=== PATIENT | male | born 1945 | race Caucasian/White ===

== ENCOUNTER → 2018-07-14 11:15 | Outpatient (CLI) | payer MEDICARE, OTHER, SELFPAY ==
[2018-07-14 12:08] LABS: Add Manual Diff / Slide Review NO; Basophils Absolute Auto 100 /uL (0-100); Basophils Percent Auto 1.1 % (0-2); Eosinophils Absolute Auto 700 /uL (0-450); Eosinophils Percent Auto 12.6 % (2-4); Hematocrit 42.9 % (41-53); Lymphocytes Absolute Auto 1600 /uL (1100-4500); Lymphocytes Percent Auto 29.7 % (25-40); Mean Corpuscular HGB Conc 32.6 % (30-36); Mean Corpuscular Hemoglobin 26.5 PG (26-34); Mean Corpuscular Volume 81.2 fL (80-100); Monocytes Absolute Auto 400 /uL (0-900); Monocytes Percent Auto 8.4 % (3-14); Neutrophils Absolute Auto 2600 /uL (1500-7000); Neutrophils Percent Auto 48.2 % (50-75); Platelet Count 265 X10^3/uL (150-400); Red Blood Cell Count 5.28 X10^6/uL (4.5-5.9); Red Cell Distribution Width 14.3 % (11.6-14.8); White Blood Cell Count 5.3 X10^3/uL (4.5-11.0)
[2018-07-14 12:28] LABS: Hemoglobin A1C% w Est Avg Glu 6.1 % (4.0-6.0)
[2018-07-14 12:33] LABS: BUN Creatinine Ratio 19.1 (6-22); Blood Urea Nitrogen 21 mg/dL (9-20); Calcium 9.7 mg/dL (8.4-10.2); Carbon Dioxide 28 mmol/L (22-32); Chloride 101 mmol/L (98-107); Estimated Glomerular Filt Rate > 60.0 mL/min (>60); Glucose 110 mg/dL (80-110); HEMOLYSIS < 15 (0-50); Potassium 4.4 mmol/L (3.4-5.1); Sodium 138 mmol/L (137-145)
[2018-07-14 12:49] LABS: Free T4, Direct Thyroxine 1.15 ng/dL (0.78-2.19)
[2018-07-14 12:50] LABS: Prolactin 7.7 ng/mL (3.7-17.9)
[2018-07-14 13:04] LABS: Prostate Specific Antigen Scrn 4.37 ng/mL (0.1-4.0)
== END ==
PROVIDERS: PCP Internal Medicine; Visit Provider Internal Medicine
DX: E29.1 Testicular hypofunction (principal); R73.09 Other abnormal glucose; Z51.81 Encounter for therapeutic drug level monitoring; Z12.5 Encounter for screening for malignant neoplasm of prostate
CPT/HCPCS: 36415; 80048; 83036; 84146; 84403; 84439; 85025; G0103

== ENCOUNTER → 2018-08-18 15:49 | Outpatient (CLI) | payer MEDICARE, OTHER, SELFPAY ==
[2018-08-18 16:49] LABS: Add Manual Diff / Slide Review NO; Basophils Absolute Auto 100 /uL (0-100); Eosinophils Absolute Auto 700 /uL (0-450); Eosinophils Percent Auto 11.2 % (2-4); Hematocrit 39.5 % (41-53); Hemoglobin 13.1 g/dL (13.5-17.5); Lymphocytes Absolute Auto 1400 /uL (1100-4500); Lymphocytes Percent Auto 20.8 % (25-40); Mean Corpuscular HGB Conc 33.1 % (30-36); Mean Corpuscular Hemoglobin 26.9 PG (26-34); Mean Corpuscular Volume 81.2 fL (80-100); Monocytes Absolute Auto 400 /uL (0-900); Monocytes Percent Auto 5.8 % (3-14); Neutrophils Absolute Auto 4100 /uL (1500-7000); Neutrophils Percent Auto 61.2 % (50-75); Platelet Count 239 X10^3/uL (150-400); Red Blood Cell Count 4.87 X10^6/uL (4.5-5.9); Red Cell Distribution Width 14.9 % (11.6-14.8); White Blood Cell Count 6.7 X10^3/uL (4.5-11.0)
[2018-08-18 17:40] LABS: HEMOLYSIS < 15 (0-50); Iron 37 ug/dL (49-181)
[2018-08-18 17:53] LABS: Percent Iron Saturation 10 % (20-50); Total Iron Binding Capacity 383 ug/dL (261-462); Transferrin 306 mg/dL (206-381)
[2018-08-18 18:12] LABS: Prostate Specific Antigen Scrn 3.25 ng/mL (0.1-4.0)
[2018-08-18 18:16] LABS: Ferritin 7.5 ng/mL (17.9-464)
== END ==
PROVIDERS: PCP Internal Medicine; Visit Provider Internal Medicine
DX: D72.1 Eosinophilia (principal); E29.1 Testicular hypofunction; Z12.5 Encounter for screening for malignant neoplasm of prostate; R97.20 Elevated prostate specific antigen [PSA]
CPT/HCPCS: 36415; 82728; 83540; 83550; 85025; G0103

== ENCOUNTER 2019-03-10 10:20 | Day surgery (SDC) | payer MEDICARE, OTHER, SELFPAY ==
[2019-03-10] MEDS: PROPARACAINE 0.5% OPHTH SOL 2 DROPS EYE-OP (11:26)
[2019-03-10 11:27] VITALS: BP 137/72; PULSE 65; RESP 16; TEMP 36; O2SAT 100; BMI 27.8
[2019-03-10] MEDS: CATARACT EYE COMPOUND (10 DROPS/SYRINGE) 3 DROPS EYE-OP (11:37)
[2019-03-10 11:45] VITALS: BP 137/72; PULSE 65; RESP 16; TEMP 36; O2SAT 100; BMI 27.8
--- NOTE | 2019-03-10 12:25 | PM.PREOP ---
Pre-operative Note Interval Note History & Physical reviewed/Exam performed by Physician: No Changes to H&P: No
--- NOTE | 2019-03-10 12:25 | PM.OP.1 ---
Operative Date/Time/Diagnoses Pre-op diagnosis: Nuclear Cataract Left eye Post-op diagnosis: same Procedure & Clinicians Surgeon: Yayo Hamm Anesthesia Type: MAC +/- and Sedation Operative Notes Procedure in detail: Patient brought to the operating suite. Tetracaine drops placed in the left eye. Patient was prepped and draped in sterile manner. Wire lid speculum was placed in the eye. Betadine drops were placed on the eye. This was irrigated. Lidocaine jelly was placed on the eye. A paracentesis port was created with a side-port blade. 0.1 mL 1% preservative free lidocaine was injected into the anterior chamber. The anterior chamber was deepened with viscoelastic. 2.6 mm keratome was used to create a temporal clear corneal incision. Cystotome and Utrata forceps were used to create continuous tear capsulorrhexis. Balanced salt solution was used to hydro dissect the nucleus. The phacoemulsification handpiece was inserted and the nucleus was removed using the stop and chop technique. The irrigation aspiration handpiece was inserted and the remaining cortex was removed. Anterior chamber was deepened with viscoelastic. An Reddy ZCB00 intraocular lens with a power of 17.0 was injected into the capsular bag. Irrigation aspiration handpiece was inserted and the remaining viscoelastic was removed. Incision was hydrated with balanced salt solution and found to be leak free with pressure with Weck-Keyla sponges. 0.1 mL Vigamox injected anterior chamber. 0.3 mL Kenalog 10 mg was injected subconjunctivally. Lid speculum was removed. The patient left the operating room in excellent condition. Complications: none Post-operative Condition: stable Disposition: same day surgery
[2019-03-10] MEDS: MOXIFLOXACIN INJ 5 MG/ML VIAL EYE-OP (12:45)
[2019-03-10] MEDS: PHENYLEPHRINE/LIDOCAINE VIAL (OR) 0.2 ML EYE-OP (12:45)
[2019-03-10] MEDS: TRIAMCINOLONE 50 MG/5 ML VIAL INJ (12:45)
[2019-03-10] MEDS: TETRACAINE 0.5% OPHTH DROPS 4 ML 2 DROPS EYE-OP (12:46)
[2019-03-10] MEDS: CHONDROIDTIN/SOD HYALURONATE 1.05 ML SYRINGE INTRAOCULA (12:46)
[2019-03-10] MEDS: LIDOCAINE JELLY 2% 5 ML 1 APPLIC TOP (12:46)
[2019-03-10] MEDS: BALANCED SALT IRRIG SOLN NO.2 500 ML, EPINEPHrine 1 MG IRR (12:46)
[2019-03-10 13:04] VITALS: BP 121/75; PULSE 69; RESP 17; TEMP 36.5; O2SAT 96
== END 2019-03-10 13:25 | disposition home or self-care (01) ==
PROVIDERS: PCP Internal Medicine; Visit Provider Ophthalmology
PROC: (CPT 66984; principal; 2019-03-10 12:45)
DX: H25.12 Age-related nuclear cataract, left eye (principal); I10 Essential (primary) hypertension
CPT/HCPCS: 66984; J0171; J2250; J3010; J3301

== ENCOUNTER 2019-03-24 11:04 | Day surgery (SDC) | payer MEDICARE, OTHER, SELFPAY ==
[2019-03-24] MEDS: PROPARACAINE 0.5% OPHTH SOL 2 DROPS EYE-OP (11:26)
[2019-03-24] MEDS: CATARACT EYE COMPOUND (10 DROPS/SYRINGE) 3 DROPS EYE-OP (11:32)
[2019-03-24 11:34] VITALS: BP 130/74; PULSE 68; RESP 15; TEMP 36.5; O2SAT 99; BMI 27.5
--- NOTE | 2019-03-24 11:44 | PM.PREOP ---
Pre-operative Note Interval Note History & Physical reviewed/Exam performed by Physician: No Changes to H&P: No
--- NOTE | 2019-03-24 11:44 | PM.OP.1 ---
Operative Date/Time/Diagnoses Pre-op diagnosis: Nuclear cataract right eye Procedure & Clinicians Procedure: Cataract Surgery Same procedure as scheduled: Yes Surgeon: Yayo Hamm Anesthesia Type: MAC +/- and Sedation Operative Notes Procedure in detail: Patient brought to the operating suite. Tetracaine drops placed in the right eye. Patient was prepped and draped in sterile manner. Wire lid speculum was placed in the eye. Betadine drops were placed on the eye. This was irrigated. Lidocaine jelly was placed on the eye. A paracentesis port was created with a side-port blade. 0.1 mL 1% preservative free lidocaine was injected into the anterior chamber. The anterior chamber was deepened with viscoelastic. 2.6 mm keratome was used to create a temporal clear corneal incision. Cystotome and Utrata forceps were used to create continuous tear capsulorrhexis. Balanced salt solution was used to hydro dissect the nucleus. The phacoemulsification handpiece was inserted and the nucleus was removed using the stop and chop technique. The irrigation aspiration handpiece was inserted and the remaining cortex was removed. Anterior chamber was deepened with viscoelastic. An Reddy ZCB00 intraocular lens with a power of 19.0 was injected into the capsular bag. Irrigation aspiration handpiece was inserted and the remaining viscoelastic was removed. Incision was hydrated with balanced salt solution and found to be leak free with pressure with Weck-Keyla sponges. 0.1 mL Vigamox injected anterior chamber. 0.3 mL Kenalog 10 mg was injected subconjunctivally. Lid speculum was removed. The patient left the operating room in excellent condition. Complications: none Post-operative Condition: stable Disposition: same day surgery
--- NOTE | 2019-03-24 11:56 | SUR.OPER ---
Supine on eye stretcher, head on extension cradle secured with tape. Arms tucked at sides with blanket. Pillow under knees.
[2019-03-24] MEDS: CHONDROIDTIN/SOD HYALURONATE 1.05 ML SYRINGE INTRAOCULA (11:59)
[2019-03-24] MEDS: PHENYLEPHRINE/LIDOCAINE VIAL (OR) 0.2 ML EYE-OP (11:59)
[2019-03-24] MEDS: MOXIFLOXACIN INJ 5 MG/ML VIAL EYE-OP (11:59)
[2019-03-24] MEDS: TRIAMCINOLONE 50 MG/5 ML VIAL INJ (11:59)
[2019-03-24] MEDS: BALANCED SALT IRRIG SOLN NO.2 500 ML, EPINEPHrine 1 MG IRR (12:00)
[2019-03-24] MEDS: LIDOCAINE JELLY 2% 5 ML 1 APPLIC TOP (12:00)
[2019-03-24] MEDS: TETRACAINE 0.5% OPHTH DROPS 4 ML 2 DROPS EYE-OP (12:00)
[2019-03-24 12:11] VITALS: BP 122/81; PULSE 84; RESP 16; TEMP 36.7; O2SAT 97
== END 2019-03-24 12:29 | disposition home or self-care (01) ==
PROVIDERS: PCP Internal Medicine; Visit Provider Ophthalmology
PROC: (CPT 66984; principal; 2019-03-24 12:45)
DX: H25.11 Age-related nuclear cataract, right eye (principal); I10 Essential (primary) hypertension
CPT/HCPCS: 66984; J0171; J2250; J3010; J3301

== ENCOUNTER → 2024-03-03 14:18 | Outpatient (CLI) | payer MEDICARE, OTHER, SELFPAY ==
[2024-03-03 20:17] LABS: BUN Creatinine Ratio 20.7 (6-22); Blood Urea Nitrogen 35 mg/dL (9-20); Calcium 9.6 mg/dL (8.4-10.2); Carbon Dioxide 25 mmol/L (22-32); Chloride 106 mmol/L (98-107); Estimated Glomerular Filt Rate 41 mL/min (>60); Glucose 172 mg/dL (80-110); HEMOLYSIS 42 (0-50); Potassium 4.4 mmol/L (3.4-5.1); Sodium 137 mmol/L (137-145)
== END ==
PROVIDERS: PCP Internal Medicine
DX: N18.31 Chronic kidney disease, stage 3a (principal); E11.9 Type 2 diabetes mellitus without complications
CPT/HCPCS: 80048